=== PATIENT | male | born 1960 | race Caucasian/White ===

== ENCOUNTER 2017-08-15 10:50 | Day surgery (SDC) | payer OTHER ==
[~2017-08-15] VITALS: Ht 180.3 cm; Wt 138.8 kg
[~2017-08-15 10:50] MED LIST: ATENOLOL-CHLOR1 EAC1 PO; LOSARTAN POTAS100 MG PO; OMEPRAZOLE20 MG PO
[2017-08-15] MEDS ORDERED: VITAMIN C500 M4 PO (11:12)
[2017-08-15] MEDS ORDERED: OMEGA 3 FISH O1 EACH PO (11:12)
--- NOTE | 2017-08-15 13:25 | NUR ---
08/15/17 1325 Talisha Gregory 1318-PATIENT ARRIVED TO PACU ON 4L NC O2 SAT 98% PATIENT AWAKE DENIES PAIN OR NAUSEA. ENCOURAGED TO PASS FLATUS. SR.
--- NOTE | 2017-08-16 11:54 | OR ---
[facility] [address] [place], [place] [address] Signed DATE OF OPERATION: 08/15/2017 SURGEON: Tal Villegas MD PREOPERATIVE DIAGNOSES: 1. Dysphagia. 2. Colon screening. 3. Chronic alcohol use. POSTOPERATIVE DIAGNOSES: 1. No evidence of esophageal stricture, neoplasm, or abnormality; mild diffuse gastritis, probably alcohol-related. 2. Chronic cecal inflammation without ulceration or neoplasm. 3. Polyps x2 (90 cm and rectum). PROCEDURE: 1. Esophagogastroduodenoscopy with biopsy. 2. Total colonoscopy to cecum with cold morcellation polypectomy x2 and biopsy of ileum and cecum. SURGEON: Tal Villegas MD ANESTHESIA: Intravenous sedation, propofol infusion, Christian Ponce CRNA INDICATION: This 56-year-old white man is a patient of Angeles Singer PA-C, who was last seen by me on 30/06 at that time for colonoscopy. He has had dysphagia including to water and soda pop. He also has dysphagia to solids including pizza, which he occasionally regurgitates. He underwent upper GI approximately two months prior to evaluation, which was normal. He has no associated reflux, though years ago was treated for reflux with PPI medication, but took it for only 2-3 weeks. He drinks on a day alcohol on a daily basis at least 5-6 hard drinks daily. He also smokes cigars. His colonoscopy in 2009 was notable for two snare polypectomies and one morcellation polypectomy showing only a single hyperplastic polyp. He has had no rectal symptoms. He does not have family history of colon cancer. He is admitted at this time to undergo upper endoscopy and concurrent surveillance colonoscopy. He understands the risks of bleeding, infection, and perforation. Given his prodigious alcohol use and large body Electronically Signed By: TAL VILLEGAS MD 08/16/17 1154 PATIENT NAME: YOMAIRA MORALES OPERATIVE REPORT DATE OF : 62 PHYSICIAN: TAL VILLEGAS MD REPORT #: [id number] REPORT IS CONFIDENTIAL AND NOT TO BE RELEASED WITHOUT AUTHORIZATION [facility] [address] [place], [place] [address] Signed habitus, may be considered ASA class 3 at minimum. Propofol sedation is most safe for him. FINDINGS: Notably, the esophagus was normal. There was no sign of stricture, neoplasm, inflammatory lesion, varices, or even hiatal hernia. I saw no evidence of eosinophilic esophagitis grossly. The stomach itself had mild diffuse gastritis. The flap valve was surprisingly good. The pylorus was normal as was the duodenum though the duodenum may have mild chronic inflammation. CLOtest biopsies at 30 minutes were negative. On colonoscopy, the prep was good. Complete colonoscopy was undertaken to the cecum with good visualization of the ileocecal valve and intubation of the ileum undertaken as well. The ileum was normal. There was notably chronic inflammatory change mucosa of the cecum, however. The remaining colon was normal. There were two small polyps, one at 90 cm noted at the rectum, both excised completely. Probably, the rectal polyp was hyperplastic, possibly the left colonic polyp adenomatous, it is uncertain. There was no sign of diverticulosis. DESCRIPTION OF PROCEDURE: The patient was brought to the endoscopy suite, given topical Hurricaine spray, hypopharyngeal anesthesia and placed in lateral decubitus position. He was given intravenous sedation with propofol infusional technique by the supervisor assembly room with full cardiopulmonary monitoring. A bite block was placed. An Olympus video upper endoscope was passed in the hypopharynx. The vocal cords appeared normal. Scope was advanced to the esophagus. It was completely normal. Scope was advanced to the stomach was insufflated with air. Rugal folds appeared normal. Pylorus was normal. Scope was passed through the duodenum, which showed mild duodenal inflammation, but no ulceration or neoplasm. Biopsies were taken of the duodenum to assess for celiac disease. The scope was withdrawn and biopsy was then taken of the antrum for both FAY and pathologic testing. Retroflexed view was undertaken showing a surprisingly good and intact flap valve. I did not see sign of hiatal hernia proper. The scope was withdrawn to the distal esophagus where biopsies were obtained. The mucosa was entirely normal. Further withdrawal of scope allowed for biopsy of the mid esophageal area to assess for eosinophilic esophagitis. However, there was no evidence of felinization of the esophagus. Further withdrawal of scope showed no other abnormality. Digital rectal examination was performed, which was normal. An Olympus video colonoscope was passed in the rectum and manipulated throughout the colon ultimately intubating the cecum itself. The ileocecal valve was normal and scope was manipulated into it. The ileum appeared normal. Biopsies were taken of the ileum. The scope was withdrawn to the cecum where the previously noted chronic inflammatory change of the cecum was identified once again and biopsies obtained. The chronic cecitis was noted, but no sign of Electronically Signed By: TAL VILLEGAS MD 08/16/17 1154 PATIENT NAME: YOMAIRA MORALES OPERATIVE REPORT DATE OF : 62 PHYSICIAN: TAL VILLEGAS MD REPORT #: [id number] REPORT IS CONFIDENTIAL AND NOT TO BE RELEASED WITHOUT AUTHORIZATION [address] [address] Signed neoplasm. Careful withdrawal of scope and examination throughout showed no sign of other abnormality until 90 cm from the anal verge where a small sessile polyp was noted. This was excised with cold morcellation technique. Narrow band imaging was employed to better characterize the limits of the lesion. It was small certainly less than 8 mm. Further withdrawal of scope showed no abnormality until the rectum where a small hyperplastic appearing polyp of the low rectum was noted. This was excised with cold morcellation technique as well. The scope was removed and the patient was taken to the recovery room in good condition. CONCLUDING DIAGNOSES: 1. No evidence of esophageal lesion to account for dysphagia; diffuse gastritis likely alcohol-related. 2. Two small polyps of colon. Mild cecitis. No evidence of terminal ileitis. PLAN: We will review his pathology reports and outline of plan depending on those findings. It is peculiar, he would have dysphagia. His upper GI then was performed, showed no abnormality either. This may be a primary dysmotility problem. FOLLOWUP PLAN: He will return to see me in 4-6 weeks. MD TORRI Carey/FITZ /[id number] cc: Angeles Singer PA-C Electronically Signed By: TAL VILLEGAS MD 08/16/17 1154 PATIENT NAME: YOMAIRA MORALES OPERATIVE REPORT DATE OF : 62 PHYSICIAN: TAL VILLEGAS MD REPORT #: [id number] REPORT IS CONFIDENTIAL AND NOT TO BE RELEASED WITHOUT AUTHORIZATION
== END 2017-08-15 14:05 | disposition home or self-care (01) ==
LOC: DS 10:50 → OPS 10:50 → DS 12:00 → OPS 14:05
PROVIDERS: Surgery
PROC: 0DB28ZX Excision of Middle Esophagus, Via Natural or Artificial Opening Endoscopic, Diagnostic (ICD-10-PCS; 2017-08-15)
PROC: 0DB38ZX Excision of Lower Esophagus, Via Natural or Artificial Opening Endoscopic, Diagnostic (ICD-10-PCS; 2017-08-15)
PROC: 0DBH8ZX Excision of Cecum, Via Natural or Artificial Opening Endoscopic, Diagnostic (ICD-10-PCS; 2017-08-15)
PROC: 0DBN8ZX Excision of Sigmoid Colon, Via Natural or Artificial Opening Endoscopic, Diagnostic (ICD-10-PCS; 2017-08-15)
PROC: 0DBP8ZX Excision of Rectum, Via Natural or Artificial Opening Endoscopic, Diagnostic (ICD-10-PCS; 2017-08-15)
PROC: 0DBB8ZX Excision of Ileum, Via Natural or Artificial Opening Endoscopic, Diagnostic (ICD-10-PCS; 2017-08-15)
PROC: 0DB98ZX Excision of Duodenum, Via Natural or Artificial Opening Endoscopic, Diagnostic (ICD-10-PCS; principal; 2017-08-15 12:00)
PROC: 0DB78ZX Excision of Stomach, Pylorus, Via Natural or Artificial Opening Endoscopic, Diagnostic (ICD-10-PCS; 2017-08-15 12:00)
DX: Z12.11 Encounter for screening for malignant neoplasm of colon (principal); K29.50 Unspecified chronic gastritis without bleeding; K52.9 Noninfective gastroenteritis and colitis, unspecified; K62.1 Rectal polyp; K63.5 Polyp of colon; I10 Essential (primary) hypertension; G47.30 Sleep apnea, unspecified; F10.20 Alcohol dependence, uncomplicated; Z98.41 Cataract extraction status, right eye; Z98.42 Cataract extraction status, left eye; Z90.49 Acquired absence of other specified parts of digestive tract; Z86.010 Personal history of colon polyps; Z79.899 Other long term (current) drug therapy
CPT/HCPCS: 00740; J2704; J7120

== ENCOUNTER 2020-08-03 11:52 | Day surgery (SDC) | payer OTHER ==
[~2020-08-03] VITALS: Ht 180.3 cm; Wt 136.4 kg
[~2020-08-03 11:52] MED LIST changes: +OMEGA 3 FISH O1 EACH PO; +VITAMIN C500 M4 PO
[2020-08-03] MEDS ORDERED: VITAMIN B COMP1 EACH PO (12:12)
--- NOTE | 2020-08-03 13:47 | NUR ---
08/03/20 1346 Bianca Medina 1754- PT TO PACU IN SF POSITION. EYES OPEN. FOLLOWING COMMANDS. BREATHING EASY AND UNLABORED. SPO2 >95% ON 3 L O2 VIA NC. DENIES PAIN AND NAUSEA. PT EDUCATION ABOUT POC FOR PACU.
--- NOTE | 2020-08-04 12:01 | PATH ---
[facility] [address] [place], [place] [address] Signed SPECIMEN(S): A DUODENAL BIOPSY SPECIMEN(S): B ANTRUM/PYLORUS BIOPSY SPECIMEN(S): C LOWER ESOPHAGEAL BIOPSY SPECIMEN(S): D MIDDLE ESOPHAGEAL BIOPSY SPECIMEN SOURCE: A. DUODENAL BIOPSY B. ANTRUM/PYLORUS BIOPSY C. LOWER ESOPHAGEAL BIOPSY D. MIDDLE ESOPHAGEAL BIOPSY CLINICAL HISTORY: Pre: Dysphagia, reflux. Post: Hiatal hernia, antral gastritis. MICROSCOPIC DESCRIPTION: Histologic sections of all submitted blocks are examined by light microscopy. These findings, together with the gross examination, support the pathologic diagnosis. FINAL PATHOLOGIC DIAGNOSIS: A. Duodenum, biopsy: - Duodenal mucosa with no histopathologic abnormality. - Negative for dysplasia or malignancy. B. Stomach, antrum/pylorus, biopsy: - Antral/oxyntic mucosa with mild reactive gastropathy. - Negative for Helicobacter organisms on HE stain. - Negative for dysplasia or malignancy. C. Esophagus, lower, biopsy: - Squamous mucosa with no histopathologic abnormality. - Negative for intestinal metaplasia, dysplasia, or malignancy. D. Esophagus, middle, biopsy: - Squamous mucosa with no histopathologic abnormality. - Negative for intestinal metaplasia, dysplasia, or malignancy. NAL:cml:C2NR GROSS DESCRIPTION: Four specimens are received in four containers, labeled "DR." A. The specimen, labeled "DR, 1," and designated on the requisition "duodenal," is received in formalin and consists of two hooks soft tissue fragments that measure 0.3 cm in greatest dimension. The specimen is entirely submitted in cassette (A1). B. The specimen, labeled "DR, 2," and designated on the requisition PATIENT NAME: YOMAIRA MORALES PATHOLOGY DATE OF : 62 REPORT #: [id number] PHYSICIAN: ROBBI PETIT PCP: AMAURY HOWE PAC REPORT IS CONFIDENTIAL AND NOT TO BE RELEASED WITHOUT AUTHORIZATION [facility] [address] [place], [place] [address] Signed "antrum/pylorus," is received in formalin and consists of two hooks soft tissue fragments that measure 0.4 cm in greatest dimension. The specimen is entirely submitted in cassette (B1). C. The specimen, labeled "DR, 3," and designated on the requisition "lower esophagus," is received in formalin and consists of two hooks soft tissue fragments that measure 0.3-0.4 cm in greatest dimension. The specimen is entirely submitted in cassette (C1). D. The specimen, labeled "DR, 4," and designated on the requisition "middle esophagus," is received in formalin and consists of multiple hooks soft tissue fragments that measure 0.2-0.4 cm in greatest dimension. The specimen is entirely submitted in cassette (D1). AT (under the direct supervision of a pathologist) The Gross Description was prepared using a voice recognition system. The report was reviewed for accuracy; however, sound-alike word errors, addition and/or deletions may occur. If there is any question about this report, please contact Client Services. PERFORMING LABORATORY: The technical component was performed by [facility], [address] [place] [id number] (Entry Level Manager: Ethel Brown MD; CLIA# [id number]). [facility], [address] [place], [place] [address], [place] [address] (CLIA# [id number]). Diagnostician: Kaitlyn Verduzco MD Pathologist Electronically Signed 08/04/2020 Copies: ~ PATIENT NAME: YOMAIRA MORALES PATHOLOGY DATE OF : 62 REPORT #: [id number] PHYSICIAN: ROBBI PATHOLOGY PCP: AMAURY HOWE PAC REPORT IS CONFIDENTIAL AND NOT TO BE RELEASED WITHOUT AUTHORIZATION
--- NOTE | 2020-08-05 10:51 | OR ---
[facility] [address] [place], [place] [address] Signed DATE OF OPERATION: 08/03/2020 SURGEON: Tal Villegas MD DATE OF PROCEDURE: 08/03/2020 PREOPERATIVE DIAGNOSES: 1. Significant dysphagia to cold food/liquid ingestion. 2. Morbid obesity and multiple medical comorbidities including daily alcohol consumption. POSTOPERATIVE DIAGNOSES: 1. Hiatal hernia without evidence of esophageal stricture, Beck's epithelium or neoplasm. 2. Mild diffuse gastritis. PROCEDURE: Esophagogastroduodenoscopy with biopsy. ANESTHESIA: Intravenous sedation, fentanyl 100 mcg and Versed 5 mg. INDICATION: This very large, 300-pound, 5 feet 9 inch, BMI 44.3, white man is a patient of ILEANA Recinos. He has complaints of "reflux" as well as dysphagia. The dysphagia appears to be related to ingestion of cold, liquids or food. He is taking omeprazole on a routine basis. He is additionally taking Reglan. He occasionally smokes cigars, but do not really routinely smoke nor does he smoke cigarettes. He does drink alcohol quite routinely. He is admitted at this time to undergo upper endoscopy to better characterize his problem which is suggestive of cold induced esophageal spasm. The risks of bleeding, infection, and perforation related to upper endoscopy was reviewed with him he understands and wished to proceed. FINDINGS: There is no evidence of stricture or neoplasm in the esophagus. The mucosa appeared normal without sign of Beck's epithelium and there was no evidence clinically of eosinophilic esophagitis. The stomach did have mild diffuse gastritis most dominantly in the antrum. Pylorus was normal. There was no gastric outlet obstruction. The duodenum was also normal. CLOtest biopsies were negative 15 minutes post procedure. Electronically Signed By: TAL VILLEGAS MD 08/05/20 1051 PATIENT NAME: YOMAIRA MORALES OPERATIVE REPORT DATE OF : 62 REPORT #: [id number] PHYSICIAN: TAL VILLEGAS MD PCP: ANGELES SINGER PAC REPORT IS CONFIDENTIAL AND NOT TO BE RELEASED WITHOUT AUTHORIZATION [facility] [address] [place], [place] [address] Signed DESCRIPTION OF PROCEDURE: The patient was brought to the endoscopy suite given topical lidocaine hypopharyngeal spray anesthesia and placed in lateral decubitus position. A bite block was placed. He was given intravenous sedation to the point of slurred speech and nystagmus. The Olympus video upper endoscope was passed in the hypopharynx. Due to some gagging and so forth the vocal cords were not well visualized. The scope was advanced in the esophagus, ultimately throughout its length it was normal. Scope was passed to the stomach which was insufflated with air. Rugal folds were found to be normal. There was mild diffuse gastritis most dominantly in the antrum. The pylorus was normal. Scope was passed through into the duodenum. The duodenum was normal. Biopsies were taken of the third and bulbar portion. The scope withdrawn to the antrum. Biopsies taken of the antrum for both FAY and pathologic testing. Retroflexed view was undertaken showing a poor flap valve consistent with hiatal hernia. There was no sign of neoplasm. The scope was withdrawn to the distal esophagus and good photographs were taken confirming normal-appearing mucosa without sign of stricture, neoplasm, Beck's epithelium, or other issue. Multiple biopsies were taken. The scope was withdrawn to the mid esophagus and biopsies similarly performed to assess for eosinophilic esophagitis. The scope was removed and the patient was taken to the recovery room in good condition. CONCLUDING DIAGNOSES: 1. Diffuse gastritis likely related to alcohol use persistently and episodic smoking of cigars. 2. No evidence of esophageal stricture or neoplasm; pathology reports pending regarding eosinophilic esophagitis. PLAN: We would recommend continued use of omeprazole on a daily basis. We would avoid smoking as much as possible, nonsteroidal medications and alcohol use as well. He will return to see us in approximately 4 to 6 weeks at which time we will review his pathology reports and his course. He is advised to continue with his omeprazole. MD TORRI Carey/MODL /[id number] Electronically Signed By: TAL VILLEGAS MD 08/05/20 1051 PATIENT NAME: YOMAIRA MORALES OPERATIVE REPORT DATE OF : 62 REPORT #: [id number] PHYSICIAN: TAL VILLEGAS MD PCP: ANGELES SINGER PAC REPORT IS CONFIDENTIAL AND NOT TO BE RELEASED WITHOUT AUTHORIZATION [facility] [address] [facility] [place], [place] [address] Signed cc: Angeles Singer PA-C Copies: ANGELES SINGER ~ Electronically Signed By: TAL VILLEGAS MD 08/05/20 1051 PATIENT NAME: YOMAIRA MORALES OPERATIVE REPORT DATE OF : 62 REPORT #: [id number] PHYSICIAN: TAL VILLEGAS MD PCP: ANGELES SINGER REPORT IS CONFIDENTIAL AND NOT TO BE RELEASED WITHOUT AUTHORIZATION
== END 2020-08-03 14:10 | disposition home or self-care (01) ==
LOC: OPS 11:52 → DS 11:57 → OPS 13:00 → DS 13:00 → OPS 14:10
PROVIDERS: ATTEND Surgery
PROC: 0DB78ZX Excision of Stomach, Pylorus, Via Natural or Artificial Opening Endoscopic, Diagnostic (ICD-10-PCS; 2020-08-03)
PROC: 0DB28ZX Excision of Middle Esophagus, Via Natural or Artificial Opening Endoscopic, Diagnostic (ICD-10-PCS; 2020-08-03)
PROC: 0DB38ZX Excision of Lower Esophagus, Via Natural or Artificial Opening Endoscopic, Diagnostic (ICD-10-PCS; 2020-08-03)
PROC: 0DB98ZX Excision of Duodenum, Via Natural or Artificial Opening Endoscopic, Diagnostic (ICD-10-PCS; principal; 2020-08-03 13:00)
DX: K44.9 Diaphragmatic hernia without obstruction or gangrene (principal); K31.9 Disease of stomach and duodenum, unspecified; K29.70 Gastritis, unspecified, without bleeding; I10 Essential (primary) hypertension; E11.9 Type 2 diabetes mellitus without complications; K21.9 Gastro-esophageal reflux disease without esophagitis; E66.01 Morbid (severe) obesity due to excess calories; L57.0 Actinic keratosis; G47.30 Sleep apnea, unspecified; F17.210 Nicotine dependence, cigarettes, uncomplicated; Z68.41 Body mass index [BMI] 40.0-44.9, adult; Z79.84 Long term (current) use of oral hypoglycemic drugs; Z79.899 Other long term (current) drug therapy; Z90.49 Acquired absence of other specified parts of digestive tract; Z86.010 Personal history of colon polyps
CPT/HCPCS: 99153; G0500; J2250; J3010; J7121